=== PATIENT | female | born 1970 | race Caucasian/White ===

== ENCOUNTER 2017-07-17 03:07 | Emergency (ER) | payer OTHER ==
[~2017-07-17] VITALS: Ht 170.2 cm; Wt 115.7 kg
[~2017-07-17 03:07] MED LIST: ADVAIR HFA115 MCG/21; ALBUTEROL NEB; AMBIEN 5 MG TABL5 M1 PO; AVELOX400 MG PO; BACTRIM; BACTRIM DS TAB1 EACH PO; BENICAR HCT 201 EACH PO; BENICAR20 MG PO; BUSPAR15 MG PO; BUSPIRONE HCL7.5 MG PO; CARISOPRODOL 3350 MG PO; CELEBREX 200 M200 M1 PO; CIPROFLOXACIN500 M3 PO; CYMBALTA; CYMBALTA60 MG PO; DESYREL100 MG PO; DOXYCYCLINE 10100 M1 PO; DULERA 200 MCG/13 GM INH; EFFEXOR; HYDROCHLOROTHIA25 M1 PO; HYDROCODON-ACE1 EACH PO; LASIX 40 MG TAB40 MG PO; LODINE400 MG PO; LYRICA 75 MG CA75 MG PO; OXYGEN NS; PREDNISONE 10 M10 M1; PREDNISONE50 MG PO; PROAIR HFA8.5 GM INH; SINGULAIR 10 MG10 M1 PO; SYMBICORT160 MCG/4.; SYMBICORT80 MCG/4.1; TIZANIDINE HCL4 MG PO; VALIUM5 MG PO; VENLAFAXINE HC150 M1 PO; VERAPAMIL ER240 M1 PO; VICODIN 5-5001 EACH PO; VITAMIN D; ZYRTEC 10 MG TA10 M1 PO
[2017-07-17] MEDS ORDERED: BRINTELLIX20 MG (03:32)
[2017-07-17] MEDS ORDERED: DIOVAN 80 MG TA80 M1 (03:32)
[2017-07-17] MEDS ORDERED: SYMBICORT160 MCG/4. (03:33)
[2017-07-17] MEDS ORDERED: PREDNISONE50 MG PO (04:17)
[2017-07-17] MEDS ORDERED: HYDROCODON-ACE1 EAC8 PO (04:17)
[2017-07-17 04:57] VITALS: BP 170/92
== END 2017-07-17 05:01 | disposition home or self-care (01) ==
LOC: M.ERS 03:07
DX: J40 Bronchitis, not specified as acute or chronic (principal); I10 Essential (primary) hypertension; F32.9 Major depressive disorder, single episode, unspecified; F41.9 Anxiety disorder, unspecified; M19.90 Unspecified osteoarthritis, unspecified site; Z98.890 Other specified postprocedural states; Z88.5 Allergy status to narcotic agent; Z88.1 Allergy status to other antibiotic agents; Z88.8 Allergy status to other drugs, medicaments and biological substances